=== PATIENT | female | born 1970 | race Caucasian/White ===

== ENCOUNTER 2016-07-08 15:48 | Emergency (ER) | payer OTHER ==
[2016-07-08 16:15] VITALS: O2SAT 100
--- NOTE | 2016-07-08 16:57 | ERPHSYRPT ---
- History of Present Illness Time Seen by Provider: 07/08/16 16:15 Source: patient Exam Limitations: clinical condition Patient Subjective Stated Complaint: pt states for the past 2 days she has had left sided jaw pain. states pt is worse with movement and chewing. Triage Nursing Assessment: pt pink, warm, drt. no swelling noted. pt afebrile. pt able to speak without difficulty. Physician History: PATIENT COMPLAINS OF LEFT SIDED JAW PAIN FOR 2 DAYS, WORSE UPON CHEWING OR OPENING HER MOUTH. DENIES INJURY, TRAUMA, FEVER, OR JAW SWELLING. Timing/Duration: gradual onset Severity: moderate ENT Location: facial Prearrival Treatment: no prearrival treatment Modifying Factors: Improves With: other (OPENING AND CLOSING MOUTH) Associated Symptoms: jaw pain Allergies/Adverse Reactions: No Known Drug Allergies Allergy (Unverified 07/08/16 16:15) Home Medications: Alprazolam [Xanax 0.5 mg] 0.5 mg PO DAILY PRN 08/05/14 [History] Escitalopram Oxalate [Lexapro] 20 mg PO DAILY 08/05/14 [History] Sucralfate 1000 mg/10 ml [Carafate SUSPENSION 1000 MG/10 ML] 100 mg PO QID 07/08/16 [History] Hx Tetanus, Diphtheria Vaccination/Date Given: Yes (up to date) Hx Influenza Vaccination/Date Given: No Hx Pneumococcal Vaccination/Date Given: No Immunizations Up to Date: Yes - Review of Systems Constitutional: No Symptoms Eyes: No Symptoms Ears, Nose, & Throat: Other (JAW PAIN) Cardiac: No Symptoms Abdominal/Gastrointestinal: No Symptoms Genitourinary Symptoms: No Symptoms Musculoskeletal: No Symptoms Skin: No Symptoms - Past Medical History Pertinent Past Medical History: Yes GI Medical History: Other Psycho-Social History: Anxiety, Depression - Past Surgical History Past Surgical History: Yes Other Surgical History: GASTRIC BYPASS-2010. uterine ablation - Social History Smoking Status: Never smoker Exposure to second hand smoke: No Drug Use: none Patient Lives Alone: No - Female History Hx Last Menstrual Period: ablasion - Nursing Vital Signs Nursing Vital Signs: Initial Vital Signs Temperature 98.4 F Temperature Source Oral Pulse Rate 78 Respiratory Rate 18 Blood Pressure [Right Arm] 135/73 Pain Intensity 9 - Physical Exam General Appearance: no apparent distress, alert Eye Exam: bilateral eye: normal inspection, PERRL, EOMI Ear Exam: bilateral ear: auricle normal, canal normal, TM normal Nasal Exam: normal inspection Throat Exam: normal (LEFT TMJ TENDERNESS), pharynx normal, moist mucus membranes , No tonsillar exudate Neck Exam: normal inspection Cardiovascular/Respiratory Exam: chest non-tender SpO2 Interpretation: normal SpO2: 100 Oxygen Delivery: Room Air - Progress Counseled pt/family regarding: diagnosis, need for follow-up - Departure Time of Disposition: 17:00 Departure Disposition: Home Clinical Impression: LEFT TMJ PAIN Condition: Stable Critical Care Time: No Additional Instructions: NORCO 5/325 EVERY 4 HOURS FOR PAIN NEEDED. PREDNISONE 40MG DAILY FOR 5 DAYS. CONSULT YOUR FAMILY PHYSICIAN OR DENTIST FOR FOLLOWUP Prescriptions: Hydrocodone Bit/Acetaminophen [[place] 5-325 Tablet] 1 each PO Q4H PRN PRN #15 tablet PRN Reason: Pain Prednisone 20 mg [Deltasone 20 mg] 2 tab PO DAILY #10 tablet
[2016-07-08 17:06] VITALS: BP 129/70; PULSE 76
== END 2016-07-08 17:06 | disposition home or self-care (01) ==
LOC: ED 15:48
DX: M26.602 Left temporomandibular joint disorder, unspecified (principal)
CPT/HCPCS: 99282

== ENCOUNTER 2016-12-09 15:50 | Emergency (ER) | payer OTHER, SELFPAY ==
[2016-12-09] MEDS ORDERED: TORAdol 30 mg Injection IM ONE (16:38)
--- NOTE | 2016-12-09 16:43 | ERPHSYRPT ---
- History of Present Illness Time Seen by Provider: 12/09/16 16:31 Source: patient Patient Subjective Stated Complaint: PT HERE FOR WOUND RECHECK, HAD LACERATION 5 DAYS AGO AND WAS SEEN AT [facility],AND IS NOW BACK FOR WOUND RECHECK, SHE STATES THAT IT IS SWELLING MORE, PAINFUL, NO DRAINAGE Triage Nursing Assessment: PT HAS LUMP TO LOWER LIP, NO DRAINAGE NOTED Physician History: CC: swelling lip HX: 46 y/o patient bumped lower lip 5 days ago. It was cut. She went a day later to [facility] ER and the lip was cauterized with silver nitrate. She had Rx for norco. The lower lip has a burning pain and the swelling returned. No other complaints. Allergies/Adverse Reactions: No Known Drug Allergies Allergy (Verified 12/09/16 16:33) Home Medications: Escitalopram Oxalate [Lexapro] 20 mg PO DAILY 08/05/14 [History] Sucralfate 1000 mg/10 ml [Carafate SUSPENSION 1000 MG/10 ML] 100 mg PO QID 07/08/16 [History] Hx Tetanus, Diphtheria Vaccination/Date Given: Yes Hx Influenza Vaccination/Date Given: Yes Hx Pneumococcal Vaccination/Date Given: No Immunizations Up to Date: Yes - Review of Systems Constitutional: No Symptoms, No Fever, No Chills Ears, Nose, & Throat: Mouth Pain (lower lip), No Throat Pain - Past Medical History Pertinent Past Medical History: No GI Medical History: Other Psycho-Social History: Anxiety, Depression - Past Surgical History Past Surgical History: Yes Other Surgical History: ABLASION, GASTRIC BYPASS - Social History Smoking Status: Never smoker Exposure to second hand smoke: No Drug Use: none Patient Lives Alone: No - Female History Hx Last Menstrual Period: ALBASION - Nursing Vital Signs Nursing Vital Signs: Initial Vital Signs Temperature 98.4 F Temperature Source Oral Pulse Rate 75 Respiratory Rate 16 Blood Pressure [Right Arm] 125/77 Pain Intensity 6 - Physical Exam General Appearance: alert Eye Exam: bilateral eye: PERRL, EOMI Neck Exam: normal inspection, non-tender, supple Neurologic Exam: alert, oriented x 3, cooperative Skin Exam: warm, dry SpO2: 99 Oxygen Delivery: Room Air Comments: lower lip has inner are on dandre surface where there is some exudate and swelling. Almost appears to be mucocele. No cellulitis or infection. Teeth appear intact. - Course Nursing assessment & vital signs reviewed: Yes - Progress Progress Note: 12/09/16 16:43 Advised NSAIDS. Advised oral surgeon follow up. Instr given. Counseled pt/family regarding: diagnosis, need for follow-up - Departure Time of Disposition: 16:43 Departure Disposition: Home Clinical Impression: Mucocele of lower lip Condition: Stable Critical Care Time: No Referrals: [facility] [Primary Care Provider] - Instructions: Contusion Additional Instructions: Warm compresses off and on to lip. This appears to be traumatic mucocele and you should see an oral surgeon for follow up. Arrange this thru your dentist. Rx ibuprofen for pain. Prescriptions: Ibuprofen 600 mg PO Q6H PRN PRN #24 tablet PRN Reason: Pain
[2016-12-09] MEDS ORDERED: TORAdol 30 mg Injection ONE (16:49)
[2016-12-09 17:21] VITALS: BP 121/70; PULSE 76; O2SAT 100
== END 2016-12-09 17:21 | disposition home or self-care (01) ==
LOC: ED 15:50
DX: K13.79 Other lesions of oral mucosa (principal)
CPT/HCPCS: 96372; 99281; 99284; J1885